=== PATIENT | male | born 1980 | race American Indian/Alaskan Native ===

== ENCOUNTER 2018-09-02 12:53 | Day surgery (SDC) | payer OTHER ==
[~2018-09-02 12:53] MED LIST: ADRENALIN IV ONE; ADRENALINE P/F IV ONE; ANCEF/STERILE WATER 2 GM/20 ML IV NR; DEPO-Medrol ONE; DILAUDID ONE; DIPRIVAN 10 MG/ML IV ONE; LACTATED RINGERS 1,000 ML ONE; MARCAINE-EPI 0.25%-1:200,000 INFILTRATI ONE; NACL 0.9% 1000 ML 1,000 ML ONE; SUBLIMAZE ONE; XYLOCAINE MPF 2% ONE; ZEMURON IV ONE
[2018-09-02] MEDS ORDERED: LACTATED RINGERS 1,000 ML IV SCH (13:00)
[2018-09-02] MEDS ORDERED: ANCEF ONE (13:04)
[2018-09-02] MEDS ORDERED: VERSED IV ONE (13:42)
[2018-09-02] MEDS ORDERED: SUBLIMAZE ONE ×2 (14:17→17:09)
[2018-09-02] MEDS ORDERED: DILAUDID ONE ×2 (14:18→16:00)
[2018-09-02] MEDS ORDERED: BLOXIVERZ ONE (14:47)
[2018-09-02] MEDS ORDERED: ZOFRAN ONE (14:47)
[2018-09-02] MEDS ORDERED: ROBINUL ONE ×2 (14:47)
--- NOTE | 2018-09-02 14:51 | Anesthesia Day of Surgery ---
Anesthesia Day of Surgery - Day of Surgery Patient Examined: Yes Patient H&P Reviewed: Yes Patient is NPO: Yes
--- NOTE | 2018-09-02 14:51 | Anesthesia Consultation ---
Anesthesia Consult and Med Hx Date of service: 09/02/18 - Airway Anesthetic Teeth Evaluation: Good ROM Head & Neck: Adequate Mental/Hyoid Distance: Adequate Mallampati Class: Class II Intubation Access Assessment: Probably Good - Pulmonary Exam CTA: Yes - Cardiac Exam Cardiac Exam: RRR - Pre-Operative Health Status ASA Pre-Surgery Classification: ASA2 Proposed Anesthetic Plan: General - Pulmonary Hx Smoking: No Hx Sleep Apnea: No (JIA PRE SCREEN LOW RISK) - Cardiovascular System Hx Hypertension: No - Other Systems Hx Cancer: No
[2018-09-02] MEDS ORDERED: DILAUDID IV PRN (14:52)
[2018-09-02] MEDS ORDERED: ZOFRAN IV PRN (14:52)
[2018-09-02] MEDS ORDERED: DEMEROL IV PRN (14:52)
[2018-09-02] MEDS ORDERED: ZEMURON IV ONE (14:58)
[2018-09-02] MEDS ORDERED: NACL 0.9% 1000 ML 1,000 ML ONE (16:00)
--- NOTE | 2018-09-02 18:13 | Procedure Note ---
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 A timeout procedure was done to identify the patient and the correct operative site routine arthroscopic portals were made posterior inferior to the lateral edge of the acromion using a #11 blade following this the inflow cannula was inserted with the shoulder and 60 of abduction using shoulder position of the glenohumeral joint was inspected the patient was noted to have a significant chondromalacia Changes in both the humeral head as well as the corresponding articular surface of the glenoid in the anterior inferior portion of the room due to the extent of the patient's osteoarthritic changes it was decided to perform a debridement of both the little glenohumeral articulation as well as synovectomy. It was not felt like a Bankart repair would be needed in this scenario due to the significant changes in both the glenoid and the corresponding humeral head following debridement and irrig ation the stab wounds were repaired a mixture of Marcaine and Depo-Medrol were injected routine postoperative dressings were applied patient tolerated the procedure dental no complications he was then sent to postanesthesia recovery in stable condition Anesthesia: GETA Surgeon: QUENTIN APONTE (Radha Tolliver, 1st assistant director of financial aid) Estimated blood loss: minimal Pathology: none Condition: stable Disposition: PACU
[2018-09-02 18:49] VITALS: BP 135/83
== END 2018-09-02 19:40 | disposition home or self-care (01) ==
LOC: OR 12:53
PROVIDERS: ATTEND Orthopaedic Surgery
DX: M94.211 Chondromalacia, right shoulder (principal); F41.9 Anxiety disorder, unspecified; Z98.890 Other specified postprocedural states; Z91.040 Latex allergy status; Z90.49 Acquired absence of other specified parts of digestive tract
CPT/HCPCS: 29822; J0171; J0690; J1030; J1170; J2250; J2405; J2704; J2710; J3010; J7030; J7120